=== PATIENT | male | born 1970 | race African-American/Black ===

== ENCOUNTER 2021-08-30 09:46 | Emergency (ER) | payer MEDICAID ==
[~2021-08-30] VITALS: Ht 167.6 cm; Wt 73.0 kg
[2021-08-30 09:56] VITALS: BP 136/95
[2021-08-30] MEDS ORDERED: ACETAMINOPHEN 325MG TABLET PO ONE (10:15)
[2021-08-30] MEDS ORDERED: TOPUD MT (11:57)
== END 2021-08-30 12:26 | disposition home or self-care (01) ==
LOC: ER 09:46
DX: M79.662 Pain in left lower leg (principal); E11.9 Type 2 diabetes mellitus without complications; E78.00 Pure hypercholesterolemia, unspecified; Z86.73 Personal history of transient ischemic attack (TIA), and cerebral infarction without residual deficits
CPT/HCPCS: 82962; 93971; 99284